=== PATIENT | male | born 1960 | race Caucasian/White ===

== ENCOUNTER → 2021-09-20 | Emergency (ER) | payer OTHER ==
[2021-09-20 12:25] LABS: MCH 32.6 pg (25.0-31.0); NRBC 0; RDW 13.2 % (11.5-14.0)
[2021-09-20 12:27] LABS: INR 1.15 (0.9-1.2); PROTHROMBIN TIME 14.1 SECONDS (11.8-13.4); PTT 29.5 SECONDS (24.4-34.7)
[2021-09-20 12:39] LABS: LACTIC ACID 1.7 mmol/L (0.4-1.9)
[2021-09-20 12:45] LABS: ALBUMIN 3.4 g/dL (3.4-5.0); BILIRUBIN - TOTAL 0.5 mg/dL (0.2-1.0); BUN/CREAT RATIO (CALC) 16.4 RATIO; CREATININE 1.16 mg/dL (0.67-1.17); GLOBULIN (CALCULATION) 4.2 g/dL; MAGNESIUM 1.7 mg/dL (1.8-2.4); POTASSIUM 4.4 mmol/L (3.5-5.1); TOTAL PROTEIN 7.6 g/dL (6.4-8.2)
[2021-09-20 13:20] LABS: INFLUENZA A NAA NEGATIVE (NEGATIVE)
[2021-09-20 13:26] LABS: CORONAVIRUS 2019 SARS-COV-2 POSITIVE (NEGATIVE)
[2021-09-20 14:45] LABS: HCT 39.2 % (42.0-52.0)
[2021-09-20 14:47] LABS: HGB 13.2 g/dL (13.2-18.0)
[2021-09-20 15:25] LABS: BILIRUBIN NEGATIVE (NEGATIVE); BLOOD NEGATIVE Ery/uL (NEGATIVE); CLARITY CLEAR (CLEAR); COLOR YELLOW (YELLOW); GLUCOSE (U) NORMAL (NORMAL); LEUKOCYTES NEGATIVE Leu/uL (NEGATIVE); NITRITE NEGATIVE (NEGATIVE); PROTEIN NEGATIVE (NEGATIVE); SPECIFIC GRAVITY 1.025 (1.001-1.030); UROBILINOGEN 0.2 mg/dL (0.2-1.0)
[2021-09-21 12:25] LABS: HGB 13.2 g/dl (13.2-18.0); RBC 4.05 M/uL (4.70-6.00)
[2021-09-21 12:26] LABS: HCT 39.2 % (42.0-52.0); MCV 96.8 fL (78.0-100.0)
[2021-09-21 12:27] LABS: MCHC 33.7 g/dL (32.0-36.0); MPV 10.5 fL (6.0-9.5); PLT 185 K/uL (150-400)
[2021-09-21 12:28] LABS: LYMPHOCYTE 39.7 % (15-48); MONOCYTE 7.7 % (0-12); NEUTROPHIL 49.6 % (41-80)
[2021-09-21 12:29] LABS: BASOPHIL 0.8 % (0-2); EOSINOPHIL 1.3 % (0-5)
== END | disposition home or self-care (01) ==
LOC: FER 11:49
PROVIDERS: Emergency Medicine
DX: U07.1 COVID-19 (principal); G40.909 Epilepsy, unspecified, not intractable, without status epilepticus; E66.9 Obesity, unspecified; Z88.8 Allergy status to other drugs, medicaments and biological substances
CPT/HCPCS: 36415; 70450; 71045; 80053; 81003; 83605; 83735; 84145; 84443; 84484; 85014; 85018; 85025; 85610; 85730; 86922; J2060; J2405; U0002